=== PATIENT | female | born 1950 | race Caucasian/White ===

== ENCOUNTER 2019-09-18 18:16 | Observation (INO) ==
[2019-09-18 19:02] LABS: Basophils # 0.1 K/mcL (0.0-0.2); Basophils % 0.5 %; Eosinophils # 0.5 K/mcL (0.0-0.6); Eosinophils % 4.1 %; Hematocrit 41.9 % (35.3-44.9); Hemoglobin 13.8 g/dL (11.5-15.4); Immature Granulocytes % 0.2 % (0-4); Lymphocytes # 4.6 K/mcL (0.6-4.6); Lymphocytes % 41.3 %; Mean Corpuscular HGB Conc 32.9 g/dL (31.6-35.5); Mean Corpuscular Hemoglobin 28.9 pg (28.0-33.3); Mean Corpuscular Volume 87.7 fL (83.0-100.0); Mean Platelet Volume 9.7 fL (9.4-12.4); Monocytes # 0.7 K/mcL (0.0-1.3); Monocytes % 6.5 %; Neutrophils # 5.3 K/mcL (1.6-8.9); Platelet Count 325 K/mcL (140-400); Red Blood Count 4.78 M/mcL (3.82-4.97); Segmented Neutrophils % 47.4 %; White Blood Count 11.2 K/mcL (4.3-11.1)
[2019-09-18 19:12] LABS: Prothrombin Time 11.9 Seconds (9.4-12.1)
[2019-09-18 19:15] LABS: Activated Partial Thrombo Time 30.8 Seconds (26.0-36.0)
[2019-09-18 19:23] LABS: Bilirubin,Urine Negative (Negative); Blood,Urine Negative (Negative); Clarity,Urine Clear (Clear); Color,Urine Yellow (Yellow); Glucose,Urine (UA) Normal (Normal); Ketones,Urine Negative (Negative); Leukocyte Esterase,Urine Moderate (Negative); Nitrite,Urine Negative (Negative); PH,Urine 6.5 pH Units (5.0-8.0); Protein,Urine Negative (Neg-Trace); Specific Gravity,Urine 1.013 (1.010-1.025); Urobilinogen,Urine Normal (Normal)
[2019-09-18 19:25] LABS: Bacteria,Urine None Seen per hpf (None-Few); Hyaline Casts,Urine None Seen per lpf (None-Few); RBC,Urine 0-3 per hpf (0-3); Squamous Epithelial Cell,Urine Few per lpf (None-Few)
[2019-09-18] MEDS ORDERED: Morphine Sulfate 2 MG/ML SYRINGE IVP STA (19:25)
[2019-09-18 19:39] LABS: BUN/Creatinine Ratio 15 (6-26); Blood Urea Nitrogen 13 mg/dL (8-23); Calcium 9.2 mg/dL (8.6-10.3); Carbon Dioxide 30 mEq/L (23-29); Chloride 100 mEq/L (98-107); Glucose 96 mg/dL (70-105); Osmolality,Calculated 286 (280-300); Potassium 3.5 mEq/L (3.5-5.1); Sodium 138 mEq/L (136-145); Troponin I < 0.03 ng/mL (< 0.04); eGFR For African Americans > 60 (> 60); eGFR For Non-African Americans > 60 (> 60)
[2019-09-18] MEDS ORDERED: Morphine Sulfate 2 MG/ML SYRINGE IVP ONE (19:39)
[2019-09-18] MEDS ORDERED: *HR* HYDROmorphone (PF) 1 MG/ML SYRINGE IVP ONE (21:26)
[2019-09-18] MEDS ORDERED: methocarbamoL 500 MG TABLET PO ONE (22:45)
[2019-09-18] MEDS ORDERED: Ketorolac 30 MG/ML VIAL IM ONE (22:46)
[2019-09-18] MEDS ORDERED: Naloxone 0.4 MG/ML INJ IVP PRN (23:15)
[2019-09-18] MEDS ORDERED: Mag Hydrox/Al Hydrox/Simeth 30 ML UDC PO PRN (23:15)
[2019-09-18] MEDS ORDERED: Ondansetron 4 MG/2 ML VIAL IVP PRN (23:15)
[2019-09-19] MEDS ORDERED: Ipratropium/Albuterol Neb 3 ML IH PRN (00:32)
[2019-09-19] MEDS: Ibuprofen 400 MG TABLET PO PRN ×2 (02:35→14:13)
[2019-09-19] MEDS ORDERED: methocarbamoL 500 MG TABLET PO SCH (04:00)
[2019-09-19] MEDS: *HR* HYDROmorphone 2 MG/ML SYRINGE IVP PRN ×3 (04:40→16:11)
[2019-09-19] MEDS ORDERED: *HR* Heparin 5,000 UNIT/ML VIAL SQ SCH (06:00)
[2019-09-19 06:34] LABS: Hemoglobin 14.1 g/dL (11.5-15.4); Mean Corpuscular HGB Conc 32.8 g/dL (31.6-35.5); Mean Corpuscular Hemoglobin 28.9 pg (28.0-33.3); Mean Corpuscular Volume 88.1 fL (83.0-100.0); Platelet Count 315 K/mcL (140-400); Red Blood Count 4.88 M/mcL (3.82-4.97); Red Cell Distribution Width 12.1 % (11.5-14.5); White Blood Count 10.8 K/mcL (4.3-11.1)
[2019-09-19 06:54] LABS: BUN/Creatinine Ratio 16 (6-26); Blood Urea Nitrogen 12 mg/dL (8-23); Calcium 8.9 mg/dL (8.6-10.3); Carbon Dioxide 30 mEq/L (23-29); Chloride 102 mEq/L (98-107); Glucose 96 mg/dL (70-105); Osmolality,Calculated 286 (280-300); Potassium 3.3 mEq/L (3.5-5.1); Sodium 138 mEq/L (136-145); eGFR For African Americans > 60 (> 60); eGFR For Non-African Americans > 60 (> 60)
[2019-09-19] MEDS: Acetaminophen 325 MG TABLET PO PRN ×2 (08:47→15:20)
[2019-09-19] MEDS: methocarbamoL 500 MG TABLET PO SCH ×2 (08:48→16:04)
[2019-09-19] MEDS ORDERED: predniSONE 20 MG TABLET PO ONE (09:45)
[2019-09-19 15:19] VITALS: BP 139/76
== END 2019-09-19 17:40 | disposition home or self-care (01) ==
LOC: 3BNU 18:16 → EMEROOARM 18:16 → SUATTDRO 21:41 → 3BNU 22:19
PROVIDERS: ADMIT Family Medicine; ATTEND Internal Medicine